=== PATIENT | female | born 1940 | race Caucasian/White ===

== ENCOUNTER 2018-01-20 20:23 | Emergency (ER) | payer MEDICARE ==
--- NOTE | 2018-01-20 21:22 | Emergency Department Record ---
History of Present Illness - General Chief Complaint: General Stated Complaint: HAVING CHILLS /POST OP Time Seen by Provider: 01/20/18 20:28 Source: Patient Mode of Arrival: Ambulatory Limitations: No limitations - History of Present Illness Initial Comments: pt had endoscopy and colonoscopy today. afterwards she started having r sided abd pain and severe chilling and body aches for 4 hours. she has had a cough lately. MD Complaint: Fever -: Hour(s) Context: Recent procedure Associated Symptoms: Chills, Cough, Rigors Treatments Prior to Arrival: None - Related Data Home Medications Medication Instructions Recorded Confirmed Last Taken Omeprazole/Sodium Bicarbonate 1 each PO DAILY 01/20/18 01/20/18 01/19/18 [Zegerid 20 mg Capsule] Allergies Allergy/AdvReac Type Severity Reaction Status Date / Time sertraline [From Zoloft] Allergy SWELLING Verified 01/20/18 20:58 OF THE LIPS erythromycin base AdvReac VOMITING Verified 01/20/18 20:37 sulfamethoxazole AdvReac ABDOMINAL Verified 01/20/18 20:37 [From Bactrim] PAIN trimethoprim [From Bactrim] AdvReac ABDOMINAL Verified 01/20/18 20:37 PAIN SSRI Allergy SWELLING Uncoded 01/20/18 20:58 OF THE LIPS Travel Screening - Travel/Exposure Within Last 30 Days Have you traveled within the last 30 days?: No - Travel Symptoms Symptom Screening: Fever (Subjective), Weakness, Stomach Pain Review of Systems Reviewed: No additional complaints except as noted below Constitutional: Reports: As per HPI, Chills, Fever. Denies: Malaise, Night sweats, Weakness, Weight change Eyes: Reports: As per HPI. Denies: Eye discharge, Eye pain, Photophobia, Vision change ENT: Reports: As per HPI. Denies: Congestion, Dental pain, Ear pain, Epistaxis , Hearing loss, Throat pain Respiratory: Reports: As per HPI, Cough. Denies: Dyspnea, Hemoptysis, Stridor, Wheezes Cardiovascular: Reports: As per HPI. Denies: Arrhythmia, Chest pain, Dyspnea on exertion, Edema, Murmurs, Orthopnea, Palpitations, Paroxysmal nocturnal dyspnea, Rheumatic Fever, Syncope Endocrine: Reports: As per HPI. Denies: Fatigue, Heat or cold intolerance, Polydipsia, Polyuria Gastrointestinal: Reports: As per HPI, Abdominal pain. Denies: Constipation, Diarrhea, Hematemesis, Hematochezia, Melena, Nausea, Vomiting Genitourinary: Reports: As per HPI. Denies: Abnormal menses, Discharge, Dyspareunia, Dysuria, Frequency, Hematuria, Incontinence, Retention, Urgency Musculoskeletal: Reports: As per HPI. Denies: Arthralgia, Back pain, Gout, Joint swelling, Myalgia, Neck pain Skin: Reports: As per HPI. Denies: Bruising, Change in color, Change in hair/ nails, Lesions, Pruritus, Rash Neurological: Reports: As per HPI. Denies: Abnormal gait, Confusion, Headache, Numbness, Paresthesias, Seizure, Tingling, Tremors, Vertigo, Weakness Psychiatric: Reports: As per HPI. Denies: Anxiety, Auditory hallucinations, Depression, Homicidal thoughts, Suicidal thoughts, Visual hallucinations Hematological/Lymphatic: Reports: As per HPI. Denies: Anemia, Blood Clots, Easy bleeding, Easy bruising, Swollen glands Past Medical History - SOCIAL HISTORY Smoking Status: Never smoker Alcohol Use: Rare Drug Use: None - RESPIRATORY Hx Respiratory Disorders: No - CARDIOVASCULAR Hx Cardio Disorders: Yes Hx Pacemaker/Defib: Yes (pacer only) Comment:: AV NODE ABLATION - NEURO Hx Neuro Disorders: No - GI Hx GI Disorders: Yes Hx Reflux: Yes Hx of Polyps: Yes Comment:: MORALES'S ESOPHAGUS - Hx Genitourinary Disorders: No - ENDOCRINE Hx Endocrine Disorders: No - MUSCULOSKELETAL Hx Musculoskeletal Disorders: No - PSYCH Hx Psych Problems: Yes Hx Anxiety: Yes - HEMATOLOGY/ONCOLOGY Hx Hematology/Oncology Disorders: No Family Medical History Any Significant Family History?: No Physical Exam - General General Appearance: Alert, Oriented x3, Cooperative, Mild distress - Head Head exam: Normal inspection - Eye Eye exam: Normal appearance, PERRL, EOMI Pupils: Normal accommodation - ENT ENT exam: Normal exam, Mucous membranes moist, Normal external ear exam, Normal orophraynx, TM's normal bilaterally Ear exam: Normal external inspection. negative: External canal tenderness Nasal Exam: Normal inspection. negative: Discharge, Sinus tenderness Mouth exam: Normal external inspection, Tongue normal Teeth exam: Normal inspection. negative: Dental caries Throat exam: Normal inspection. negative: Tonsillar erythema, Tonsillar exudate - Neck Neck exam: Normal inspection, Full ROM. negative: Tenderness - Respiratory Respiratory exam: Normal lung sounds bilaterally. negative: Respiratory distress - Cardiovascular Cardiovascular Exam: Normal rhythm, Normal heart sounds, Tachycardia - GI/Abdominal GI/Abdominal exam: Soft, Normal bowel sounds, Tenderness (rlq) - Rectal Rectal exam: Deferred - exam: Deferred - Extremities Extremities exam: Normal inspection, Full ROM, Normal capillary refill. negative: Tenderness - Back Back exam: Reports: Normal inspection, Full ROM. Denies: Muscle spasm, Rash noted, Tenderness - Neurological Neurological exam: Alert, CN II-XII intact, Normal gait, Oriented X3, Reflexes normal - Psychiatric Psychiatric exam: Normal affect, Normal mood - Skin Skin exam: Dry, Intact, Normal color, Warm Course Vital Signs 01/20/18 01/20/18 20:39 21:14 Temperature 99.6 F 100.8 F H Pulse Rate [ 107 H 97 H Pulse Ox Probe] Respiratory 20 20 Rate Blood Pressure 133/66 132/67 [Left Arm] Pulse Ox 99 95 - Reevaluation(s) Reevaluation #1: 01/20/18 23:19 pt feels much better. pt told to return for recheck if not better Reevaluation #2: 01/20/18 23:21 ct neg exc diverticulosis, cxr neg. Medical Decision Making - Lab Data Result diagrams: 01/20/18 21:30 01/20/18 21:30 Disposition Disposition: Discharge Clinical Impression: Fever and chills Disposition: Home, Self-Care Condition: (1) Good Instructions: Fever in Adults (ED) Additional Instructions: recheck tomorrow. return sooner if worse. push fluids. rest Forms: Patient Portal Access Quality - Quality Measures Quality Measures: N/A - Blood Pressure Screening Does Patient Have Any of the Following: No Blood Pressure Classification: Pre-Hypertensive BP Reading Systolic Measurement: 126 Diastolic Measurement: 56 Screening for High Blood Pressure: < Pre-Hypertensive BP, F/U Documented > [ [id number]] Pre-Hypertensive Follow-up Interventions: Follow-up with rescreen every year.
[2018-01-20 21:34] LABS: BASO % 0.1 % (0-6); EOS % 0.1 % (0-6); GRAN % 84.6 % (47-80); HEMATOCRIT 42.4 % (35.0-47.0); HEMOGLOBIN 14.3 gm/dl (11.6-16.0); LYMPH % 8.8 % (16-45); MEAN CORPUSCULAR HGB CONC 33.7 g/dl (32-36); MEAN PLATELET VOLUME 9.6 fl (7.4-10.4); MONO % 6.4 % (0-9); PLATELET COUNT 279 K/uL (130-400); RED BLOOD COUNT 4.61 M/uL (3.80-5.40); RED CELL DISTRIBUTION WIDTH 12.9 % (11.5-14.5); WHITE BLOOD COUNT W/O DIFF 13.1 K/uL (4.2-12.2)
[2018-01-20] MEDS ORDERED: ACETAMINOPHEN 500 MG TABLET PO ONE (21:37)
[2018-01-20 21:58] LABS: BLOOD UREA NITROGEN 15 mg/dL (8-23); CREATININE 0.7 mg/dL (0.5-0.9); EST GLOMERULAR FILTRATION RATE > 60 mL/min; TOTAL PROTEIN 7.5 g/dL (6.6-8.7)
[2018-01-20 22:00] LABS: GLUCOSE,RANDOM 117 mg/dL (74-109)
[2018-01-20 22:03] LABS: ALB/GLOB RATIO 1.3 (1.1-1.8); ALBUMIN 4.3 g/dL (4.0-5.0); ALKALINE PHOSPHATASE 80 U/L (35-104); ALT/SGPT 18 U/L (<33); AST/SGOT 21 U/L (10.0-35.0); CREATINE PHOSPHOKINASE 115 U/L (26-192)
[2018-01-20 22:29] LABS: URINE APPEARANCE CLEAR; URINE BILIRUBIN NEGATIVE (NEGATIVE); URINE BLOOD SMALL (NEGATIVE); URINE COLOR YELLOW; URINE GLUCOSE (UA) NEGATIVE (NEGATIVE); URINE KETONE NEGATIVE (NEGATIVE); URINE LEUKOCYTE ESTERASE TRACE (NEGATIVE); URINE NITRITE NEGATIVE (NEGATIVE); URINE PROTEIN NEGATIVE (NEGATIVE); URINE UROBILINOGEN 0.2 E.U./dL (0.20 - 1.00)
[2018-01-20 22:36] LABS: URINE EPITHELIAL CELLS 0 - 2 (FEW); URINE RBC 0 - 2 (NONE SEEN); URINE WBC 0 - 2 (0-2/hpf)
[2018-01-20] MEDS ORDERED: AL HYDROX/MAG HYDROX 30ML UD PO ONE (22:42)
[2018-01-20 23:06] LABS: INFLUENZA A NEGATIVE (NEGATIVE); INFLUENZA B NEGATIVE (NEGATIVE); STREP A SCREEN NEGATIVE (NEGATIVE)
--- NOTE | 2018-01-21 23:35 | RADIOLOGY REPORT ---
EXAM: CHEST 2 VIEWS HISTORY: DIFFICULTY BREATHING. TECHNIQUE: Frontal and lateral views of the chest. COMPARISON: None. FINDINGS: Heart size is normal. Left-sided pacing device. Osteopenia. Biapical pleural thickening. Ectasia of the thoracic aorta. COPD. No pneumothorax. IMPRESSION: COPD. BIAPICAL PLEURAL THICKENING. OSTEOPENIA. JOB NUMBER: [id number] MTDD
--- NOTE | 2018-01-21 23:42 | CT SCAN REPORT ---
EXAM: CT SCAN ABDOMEN/PELVIS WO CONTRAST HISTORY: PAIN. TECHNIQUE: CT abdomen and pelvis performed without oral or IV contrast. This limits evaluation of bowel and solid visceral organs. COMPARISON: None. FINDINGS: Limited evaluation of the lung bases shows a calcified granuloma in the left lung base. Osseous structures are grossly intact. Fatty infiltrative change to the liver. Subcentimeter hypodensity throughout the liver, likely small cysts or hemangiomas in the absence of cancer history. Small hiatal hernia. The spleen shows splenic granulomata. The adrenal glands are unremarkable. Coarse calcification near the tail of the pancreas. The gallbladder is present, contracted. Partially exophytic 4.5 x 4.9 cm right renal cyst. Kidneys are otherwise unremarkable. Moderate atheromatous change. No gross evidence evidence for bowel obstruction. Sigmoid diverticulosis. No CT evidence for diverticulitis. Urinary bladder is not distended, limiting its evaluation. No free air or free fluid. IMPRESSION: 1. SIGMOID DIVERTICULOSIS WITHOUT CT EVIDENCE FOR DIVERTICULITIS. 2. RIGHT RENAL CYST. 3. EVIDENCE OF PRIOR GRANULOMATOUS DISEASE. 4. SMALL HIATAL HERNIA. 5. FATTY INFILTRATIVE CHANGE TO THE LIVER. SUBCENTIMETER HYPODENSITIES THROUGHOUT THE LIVER, LIKELY SMALL CYSTS OR HEMANGIOMAS. JOB NUMBER: [id number] [facility]
== END 2018-01-20 23:30 | disposition home or self-care (01) ==
LOC: ER 20:23
DX: R50.9 Fever, unspecified (principal); R10.31 Right lower quadrant pain; R05 Cough; R06.00 Dyspnea, unspecified; Z98.890 Other specified postprocedural states
CPT/HCPCS: 71046; 74176; 80053; 81001; 82550; 83605; 85025; 87400; 87880; 99283; 99284